=== PATIENT | male | born 1965 | race Caucasian/White ===

== ENCOUNTER 2024-12-13 18:38 | Emergency (ER) | payer MEDICAID, SELFPAY ==
[2024-12-13 18:47] VITALS: BP 136/78; PULSE 67; RESP 18; O2SAT 96
--- NOTE | 2024-12-13 19:16 | ED.GENADUL_ITS ---
Discharge Plan Disposition Patient Disposition: Home Discharge Details Clinical Impression: Tick bite of abdomen, Knee swelling Primary Care Provider: Beto Mcginnis ED Provider: Ivis Magallon Home Meds and New Rx's Prescriptions: New doxycycline hyclate 100 mg capsule 100 mg PO BID Qty: 20 0RF Discharge Instructions Additional Instructions: Please call your primary care provider first thing Sunday morning to schedule follow-up appointment. Your tick panel results are still pending, they will be available on your portal and your primary care provider will also have access to these. You are being treated presumptively for tickborne illness with doxycycline. Please take the full course as prescribed. Please note that this can cause a serious photosensitivity reaction/sunburn when exposed to the sun. Use SPF 50 and longsleeves/hat when going outside and avoid going out during the sunniest time of day. For knee discomfort you may use Tylenol. A compression wrap such as Johan bandage may be helpful. Elevate above heart level to decrease swelling. You may use Tylenol or ibuprofen as needed for discomfort. Return to emergency care if you develop new chest pains, difficulty breathing, episodes of passing out, high fevers despite treatment, weakness, or if you are very worried and need to be rechecked again immediately Referrals: Beto Mcginnis [Primary Care Provider] - HPI General Date/Time Provider Initiated Documentation: 12/13/24 18:48 . HPI Narrative: Raji is a 59-year-old male who presents to the emergency department for evaluation of tick bite, accompanied by partner. 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 Reports Marana tick on abdomen for at least 3 days, discovered during shower today. Suspects Lyme disease, believes doxycycline appropriate. Reports joint and muscle discomfort, including exacerbation of pre-existing left knee injury (overuse injury after extensive praying routine, approx 2 or 3 months ago), initially mild, largely resolved, now significant swelling and difficulty walking. Also with unusual finger soreness while playing guitar. No medication for knee pain. Symptoms of fatigue and fogginess began yesterday, worsening. Reports slight fever, unmeasured. No lymph node enlargement, headaches, recent illness, congestion, sore throat, cough, nausea, vomiting, abdominal pain, chest pain, respiratory difficulty, changes in bowel or bladder function, extremity weakness or numbness, or rashes/sores. Denies significant past medical history, EtOH use, immunocompromise, liver or kidney disease. No recent antibiotic use in the last couple years. Related Data Home Medications ?Medication ?Instructions ?Recorded ?Confirmed doxycycline hyclate 100 mg capsule 100 mg PO BID #20 caps 12/13/24 Previous Rx's ?Medication ?Instructions ?Recorded doxycycline hyclate 100 mg capsule 100 mg PO BID #20 caps 12/13/24 Allergies Allergy/AdvReac Type Severity Reaction Status Date / Time latex Allergy Mild contact Verified 12/13/24 18:54 dermatitis penicillin G Allergy Mild rash Verified 12/13/24 18:54 General Stated Complaint: InsectBite KRIS: 4 Exam Narrative Exam Narrative: General Appearance: Normal. Vital signs: Within normal limits. Respiratory: Lungs auscultated, clear to auscultation, easy work of breathing. Cardiovascular: Heart examined, regular rate and rhythm. Gastrointestinal: Abdomen palpated, no obvious hepatomegaly. Abdomen soft, nondistended, nontender to palpation. Back, Musculoskeletal: Left knee swollen with decreased range of motion. Extremities: Left knee with swelling to the superior medial and medial aspects. No erythema or warmth to the knee. Slightly decreased flexion due to swelling, full extension. No distal swelling, numbness/tingling. Skin: Warm and dry, no rash. Pinprick reddened spot from tick bite to R upper abdomen, no surrounding rashes. Psychiatric: Normal. Course Vital Signs Vital signs: Vital Signs Pulse 67 12/13/24 18:47 Respiratory Rate 18 12/13/24 18:47 Blood Pressure 136/78 12/13/24 18:47 Pulse Oximetry 96 12/13/24 18:47 Temperature Source Tympanic 12/13/24 18:47 Pulse 67 12/13/24 18:47 Respiratory Rate 18 12/13/24 18:47 Blood Pressure 136/78 12/13/24 18:47 Blood Pressure Position Sitting 12/13/24 18:47 Pulse Oximetry 96 12/13/24 18:47 Oxygen Delivery Method Room Air 12/13/24 18:47 Oxygen Flow Rate 0 12/13/24 18:47 Medical Decision Making Initial Assessment: 59-year-old male with a tick bite, left knee swelling, fatigue, subjective fever, and fogginess: Differential Diagnosis: - Lyme disease or other tickborne illness: Consider due to tick bite. Order blood work for Lyme disease markers and LFTs. Prescribe doxycycline. - Sprain/meniscal or ligamentous injury: Consider due to knee injury. Offered x- ray to rule out avulsion fractures or other subtle bony abnormality. - Bursitis or osteoarthritis: Consider due to knee swelling. - Meniscal injury: Consider due to knee swelling and decreased range of motion. No red flags concerning for sepsis or septic joint based on reassuring vital signs and physical exam. Patient does not meet SIRS criteria ED Course: - Blood work ordered for Lyme disease markers and liver function; CBC and CMP were both unremarkable. - Doxycycline prescribed - X-ray ordered for left knee to rule out avulsion fractures; patient declined. Advised him that this may limit workup. Final Assessment: Blood work and x-ray ordered to investigate Lyme disease, other tickborne illnesses, and knee injury. Doxycycline prescribed for potential Lyme disease or other tickborne illness such as ehrlichiosis, Olalla spotted fever, or anaplasmosis. Clinical Impression: - Tick bite - Left knee swelling - Fatigue and fogginess Disposition: - Discharge - Follow-Up: Follow up with [facility]. - I did review discharge instructions with patient, including red flags indicating need for return to emergency care, including red flags concerning for septic joint. He voices agreement with plan of care. MDM Components Evaluation: - Number of Differential Diagnoses or Management Options: Lyme disease, other tickborne illnesses, sprain, bursitis, meniscal injury. - Amount and Complexity of Data Reviewed: Blood work for Lyme disease markers and liver function, x-ray for left knee. - Risk of Complication and Morbidity or Mortality: Potential complications from untreated Lyme disease and other tickborne illnesses, knee injury. Patient consented to the use of PETE Quality:[facility] Health Related Social Needs: No Data to Display PFSH All Active Problems (Updated 12/13/24 @ 20:17 by Ivis Seaman) Knee swelling (Acute) Tick bite of abdomen (Acute) History of basal cell cancer (Acute) 01/29/20 Mohs surgery for lesion L zygoma [facility] (Acute) Surgical History (Updated 02/03/20 @ 15:06 by Aggie Wright LPN) S/P Mohs surgery for basal cell carcinoma Repair of inguinal hernia as a child 5-6 years ago BCC Excision (~2008) Right Shoulder Family History Mother No problems noted. Father Hydrocephalic disproportion Social History Smoking/Tobacco Use Status: Current every day Smoking risk assessment performed?: Yes Alcohol Intake: never Substance use type: does not use
[2024-12-13 19:51] LABS: Abs Immature Grans 0.01 10^3/uL (0.0-0.06); Absolute Basophil Count 0.06 10^3/uL (0.0-0.2); Absolute Eosinophil Count 0.37 10^3/uL (0.0-0.7); Absolute Lymphocyte Count 2.38 10^3/uL (1.2-3.4); Absolute Monocyte Count 0.54 10^3/uL (0.1-0.8); Absolute Neutrophil Count 4.29 10^3/uL (1.2-6.7); Basophils % 0.8 %; Eosinophils % 4.8 %; HCT 37.8 % (40.0-50.0); HGB 13.4 g/dL (13.5-17.5); Immature Grans % 0.1 %; Lymphocytes % 31.1 %; MCH 31.9 pg (27.0-33.0); MCHC 35.4 % (32.0-36.0); MCV 90 fL (80-95); MPV 8.5 fL (8.0-11.0); Monocytes % 7.1 %; Neutrophils % 56.1 %; Platelet Count 283 10^3/uL (130-400); RDW 13.1 % (11.8-14.1); RDW-SD 42.7 fL; WBC 7.65 10^3/uL (4.4-10.8)
[2024-12-13 20:06] LABS: ALT 18 U/L (16-63); AST 15 U/L (15-37); Albumin 3.4 g/dL (3.4-5.0); Alkaline Phosphatase 110 U/L (46-116); Anion Gap 4.9 mmol/L (3-11); BUN 16 mg/dL (7-18); Bilirubin, Total 0.2 mg/dL (0.2-1.0); CO2 28.1 mmol/L (21.0-32.0); Calcium 8.8 mg/dL (8.5-10.1); Chloride 105 mmol/L (98-107); Estimated GFR 87.78 (mL/min/1.73m2); Glucose 149 mg/dL (74-106); Potassium 3.9 mmol/L (3.5-5.1); Sodium 138 mmol/L (136-145); Total Protein 6.9 g/dL (6.4-8.2)
[2024-12-13] MEDS: Doxycycline Hyclate 100 MG CAP PO (20:17)
[2024-12-15 11:02] LABS: Lyme Ab w Rflx to Lyme Confirm Negative (Negative)
[2024-12-16 17:18] LABS: Anaplasma phagocytophilum Negative (Negative); B. miyamotoi PCR Negative (Negative); Babesia divergens/MO-1 Negative (Negative); Babesia duncani Negative (Negative); Babesia microti Negative (Negative); Ehrlichia chaffeensis Negative (Negative); Ehrlichia ewingii/canis Negative (Negative); Ehrlichia muris eauclairensis Negative (Negative)
== END 2024-12-13 20:27 | disposition home or self-care (01) ==
PROVIDERS: Emergency Provider Nurse Practitioner Family; PCP Physician Assistant
DX: S30.861A Insect bite (nonvenomous) of abdominal wall, initial encounter (principal); W57.XXXA Bitten or stung by nonvenomous insect and other nonvenomous arthropods, initial encounter; R22.42 Localized swelling, mass and lump, left lower limb; R53.83 Other fatigue
CPT/HCPCS: 99283 ×2; 80053; 87798; 85025; 86618

== ENCOUNTER 2025-01-14 17:48 | Emergency (ER) | payer MEDICAID, SELFPAY ==
[2025-01-14 17:50] VITALS: BP 136/73; PULSE 80; TEMP 36.7; O2SAT 95
[2025-01-14] MEDS: Ibuprofen 600 MG TAB PO (18:33)
[2025-01-14] MEDS: Acetaminophen 500 MG TAB 1000 MG PO (18:34)
[2025-01-14 18:40] VITALS: BP 136/73; PULSE 94; RESP 16; TEMP 36.7; O2SAT 95
--- NOTE | 2025-01-14 22:08 | ED.GENADUL_ITS ---
Discharge Plan Disposition Patient Disposition: Home Condition: Stable Discharge Details Clinical Impression: Knee swelling, Injury of coccyx, Lyme arthritis Primary Care Provider: Beto Mcginnis ED Provider: Mariangel Gonsalves Home Meds and New Rx's Prescriptions: New doxycycline hyclate 100 mg capsule 100 mg PO BID 28 Days Qty: 56 0RF meloxicam 15 mg tablet 15 mg PO DAILY Qty: 14 0RF Rx Instructions: take with food. do not take with others nsaids Discharge Instructions Additional Instructions: Continue anti-inflammatories to help with pain after your fall. Given your persistent knee swelling after treatment for Lyme arthritis, the concern would be incomplete treatment. I will restart your antibiotics but it is necessary that you follow-up with your primary care doctor to have your knee reevaluated for possible referral to orthopedics or infectious disease. Discharge Data Discharge Date/Time-TO BE ENTERED AT DEPARTURE: 01/14/25 18:41 HPI General Date/Time Provider Initiated Documentation: 01/14/25 18:01 . Limitations to Documentation: no limitations . Information obtained by: patient . HPI Narrative: 59-year-old gentleman without significant past medical history presents for evaluation of pain. He reports that just prior to arrival he was sitting on a bench enjoying a picnic when the bench collapsed and he fell onto the concrete landing below. This was approximately an 18 inch fall. He states that he has pain in his tailbone. He states that he has fractured his tailbone before and that he is concerned that this new injury may result in his sciatica acting up. He has not tried any medications for relief prior to coming here. He denies any numbness or tingling in bilateral legs and denies any weakness was able to ambulate normally prior to arrival. The patient is also concerned about some persistent left knee swelling. He states that about a month ago he was treated for presumed Lyme disease after a tick bite and a unilateral knee swelling. He was treated with 10 days of doxycycline with which he took but states that the lump left knee continues to have some minor swelling and that he has some intermittent pain there. He denies any fever or chills. 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 He never followed up with his primary care provider after his last emergency department visit diagnosis. Related Data Home Medications ?Medication ?Instructions ?Recorded ?Confirmed doxycycline hyclate 100 mg capsule 100 mg PO BID 28 days #56 caps 01/14/25 meloxicam 15 mg tablet 15 mg PO DAILY #14 tabs 01/14/25 Previous Rx's ?Medication ?Instructions ?Recorded doxycycline hyclate 100 mg capsule 100 mg PO BID 28 days #56 caps 01/14/25 meloxicam 15 mg tablet 15 mg PO DAILY #14 tabs 01/14/25 Allergies Allergy/AdvReac Type Severity Reaction Status Date / Time latex Allergy Mild contact Verified 01/14/25 17:56 dermatitis penicillin G Allergy Mild rash Verified 01/14/25 17:56 General Stated Complaint: Fall/Non TraumaCriteria KRIS: 4 Exam Narrative Exam Narrative: Review of Systems: All systems reviewed & are unremarkable except as noted in HPI and below Well-developed, no acute distress Patient is wearing a sarrong and leather vest afebrile NCAT RRR Unlabored respiratory effort no midline back tenderness, step off or deformity pelvis stable, non tender left knee with very minimal effusion, no redness or warmth, normal gait Course Vital Signs Vital signs: Vital Signs Temperature 36.7 C 01/14/25 17:50 Pulse 80 01/14/25 17:50 Blood Pressure 136/73 01/14/25 17:50 Pulse Oximetry 95 01/14/25 17:50 Temperature 36.7 C 01/14/25 18:40 Temperature Source Oral 01/14/25 17:50 Pulse 94 H 01/14/25 18:40 Respiratory Rate 16 01/14/25 18:40 Blood Pressure 136/73 01/14/25 18:40 Blood Pressure Position Sitting 01/14/25 17:50 Pulse Oximetry 95 01/14/25 18:40 Oxygen Delivery Method Room Air 01/14/25 17:50 Oxygen Flow Rate 0 01/14/25 17:50 Pain Level 7 01/14/25 18:34 Medical Decision Making Emergent evaluation of tailbone pain after a minor fall. Patient is neurologically intact and does not have any radicular symptoms. He does not want an x-ray as he does not want to expose himself to have radiation. He would like some anti-inflammatory to take. He is also concerned about his left knee swelling that has been persistent despite treatment for Lyme. However he was only treated for 10 days. It is possible that this is an incomplete treatment or just some sequelae of Lyme arthropathy. Will prescribe month of doxycycline to continue taking with strict encouragement provided to follow-up with his PCP if he is having persistent stent symptoms as he may need referral to orthopedics or infectious disease if he is having refractory symptoms. Patient encouraged to follow-up with physical therapy for his tailbone and back as he has done this previously and reports significant improvement with dry needling. Patient was provided a prescription for an anti-inflammatory as well as doxycycline. Return precautions advised. Quality:[facility] Health Related Social Needs: No Data to Display PFSH All Active Problems (Updated 01/14/25 @ 18:25 by Mariangel Gonsalves MD) Lyme arthritis (Acute) Injury of coccyx (Acute) Knee swelling (Acute) History of basal cell cancer (Acute) 01/29/20 Mohs surgery for lesion L zygoma [facility] (Acute) Surgical History (Updated 02/03/20 @ 15:06 by Aggie Wright LPN) S/P Mohs surgery for basal cell carcinoma Repair of inguinal hernia as a child 5-6 years ago BCC Excision (~2008) Right Shoulder Family History Mother No problems noted. Father Hydrocephalic disproportion Social History Smoking/Tobacco Use Status: Current every day Tobacco Type: cigarettes Years smoked: 45 Smoking risk assessment performed?: Yes Alcohol Intake: never Substance use type: does not use
== END 2025-01-14 18:41 | disposition home or self-care (01) ==
PROVIDERS: Emergency Provider Emergency Medicine; PCP Physician Assistant
DX: A69.23 Arthritis due to Lyme disease (principal); R22.42 Localized swelling, mass and lump, left lower limb; S39.92XA Unspecified injury of lower back, initial encounter; W19.XXXA Unspecified fall, initial encounter
CPT/HCPCS: 99283 ×2

== ENCOUNTER 2025-02-13 02:58 | Emergency (ER) | payer MEDICAID, SELFPAY ==
[2025-02-13 02:57] VITALS: BP 115/78; PULSE 63; RESP 20; TEMP 36.6; O2SAT 100
--- NOTE | 2025-02-13 02:58 | ED.GENADUL_ITS ---
Discharge Plan Disposition Patient Disposition: Home Condition: Good Discharge Details Clinical Impression: Encounter for medical screening examination Primary Care Provider: Beto Mcginnis ED Provider: Joseph Salvador Home Meds and New Rx's Prescriptions: No Action No Known Home Meds Discharge Instructions Additional Instructions: You were seen at the request of the police department. You were medically screened and found to have no emergent condition. You may follow-up with primary care as needed. Discharge Data Discharge Date/Time-TO BE ENTERED AT DEPARTURE: 02/13/25 03:10 Discharge Physician: Joseph Salvador [facility] General Mode of arrival: EMS . Date/Time Provider Initiated Documentation: 02/13/25 02:58 . Limitations to Documentation: no limitations . Information obtained by: patient and EMS . HPI Narrative: Patient brought to ED by EMS at police request for evaluation. Patient has no physical complaint other than wanting something to eat and needing a coffee. Reports that his blood sugar is low but EMS reports that it was 112. Patient otherwise has no physical complaint. Denies any type of SI or HI. Continues to request food and coffee. Related Data Home Medications ?Medication ?Instructions ?Recorded ?Confirmed Unknown [No Known Home Meds] 02/13/25 0 02/13/25 Allergies Allergy/AdvReac Type Severity Reaction Status Date / Time latex Allergy Mild contact Verified 02/13/25 03:12 dermatitis penicillin G Allergy Mild rash Verified 02/13/25 03:12 General KRIS: 4 Exam Narrative Exam Narrative: Const: WDWN male in NAD. VS per triage. HEENT: NC/AT. Normal facial exam. Neck: Supple. Trachea midline. Lungs: Normal respiratory effort. Neuro: A+O x 3. Normal speech, mentation, gait. Cranial nerves II - XII grossly intact. No gross motor or sensory deficit. Psych: Normal mood and affect. Speech normal. Seems a little grandiose but thought process appears normal. No SI, HI, hallucinations. Medical Decision Making Patient brought to ED by EMS per police request. Patient is awake and alert, not altered and not appearing under the influence. He has no physical complaint. He seems a little grandiose but is not exhibiting SI, HI, hallucinations and appears to have normal thought process. He is medically cleared for discharge. He was given a cup of coffee per his request. [facility] All Active Problems (Updated 02/13/25 @ 03:00 by Joseph Salvador MD) Encounter for medical screening examination (Acute) Lyme arthritis (Acute) Injury of coccyx (Acute) Knee swelling (Acute) History of basal cell cancer (Acute) 01/29/20 Mohs surgery for lesion L zygoma [facility] (Acute) Surgical History S/P Mohs surgery for basal cell carcinoma Repair of inguinal hernia as a child 5-6 years ago BCC Excision (~2008) Right Shoulder Family History Mother No problems noted. Father Hydrocephalic disproportion Social History Smoking/Tobacco Use Status: Current every day Tobacco Type: cigarettes Years smoked: 45 Smoking risk assessment performed?: Yes Alcohol Intake: never Substance use type: does not use
== END 2025-02-13 03:10 | disposition home or self-care (01) ==
LOC: ER 03:08
PROVIDERS: Emergency Provider Emergency Medicine; PCP Physician Assistant
DX: Z02.89 Encounter for other administrative examinations (principal); F17.210 Nicotine dependence, cigarettes, uncomplicated; Z71.1 Person with feared health complaint in whom no diagnosis is made
CPT/HCPCS: 99282